=== PATIENT | male | born 1950 | race American Indian/Alaskan Native ===

== ENCOUNTER 2019-03-18 07:02 | Inpatient (IN) | payer MEDICAID, OTHER ==
[2019-03-18 07:53] LABS: Basophils # (Auto) 0.1 K/mm3 (0.0-0.1); Basophils % (Auto) 1.4 % (0.0-1.8); Eosinophils # (Auto) 0.3 K/mm3 (0.0-0.4); Eosinophils % (Auto) 5.4 % (0.0-4.3); Hematocrit 31.9 % (35.5-45.6); Hemoglobin 10.6 gm/dl (11.8-15.2); Lymphocytes # (Auto) 1.4 K/mm3 (1.2-5.4); Lymphocytes % (Auto) 21.8 % (13.4-35.0); Mean Corpuscular HGB Conc 33 % (32-34); Mean Corpuscular Volume 85 fl (84-94); Monocytes % (Auto) 15.9 % (0.0-7.3); Platelet Count 190 K/mm3 (140-440); Red Blood Count 3.77 M/mm3 (3.65-5.03); Red Cell Distribution Width 16.3 % (13.2-15.2)
[2019-03-18 08:08] LABS: Calcium 9.3 mg/dL (8.4-10.2)
[2019-03-18] MEDS ORDERED: D50W (25GM) Vial IV ONE (08:31)
[2019-03-18] MEDS ORDERED: PROVENTIL IH ONE (08:31)
[2019-03-18] MEDS ORDERED: HumuLIN R IV ONE (08:32)
[2019-03-18] MEDS ORDERED: CALCIUM GLUCONATE 1,000 MG in NACL 0.9% 100 ML IV ONE (08:32)
[2019-03-18] MEDS ORDERED: LASIX IV ONE (08:46)
[2019-03-18] MEDS ORDERED: D50W (25GM) Syringe IV ONE (09:00)
--- NOTE | 2019-03-18 09:00 | Emergency Department Report ---
ED General Adult HPI - General Chief complaint: Medical Clearance Stated complaint: DIALYSIS Time Seen by Provider: 03/18/19 08:30 Source: patient, family Mode of arrival: Wheelchair Limitations: No Limitations - History of Present Illness Initial comments: 68-year-old male with a past medical history of hypertension and diabetes and recent onset of end-stage renal disease requiring dialysis presents to the hospital requesting dialysis. Patient was just discharged from [facility] 3 days ago this past Monday after an admission for acute renal failure. Patient had a right sided chest wall catheter placed and had approximately 5 episodes of dialysis prior to discharge. Last dialysis was 3 days ago. Patient is not a [place] citizen and therefore is having difficulty finding a dialysis center and was told by [facility] to go to the closest ER near his house on Monday for dialysis. Patient presents asymptomatic and denies shortness of breath, leg edema, or chest pain. He does still make urine 1-2 times per day. - Related Data Home Medications Medication Instructions Recorded Confirmed Last Taken Acetaminophen 1,000 mg PO TID PRN 03/18/19 03/18/19 Unknown Aspirin [Aspirin BABY CHEW TAB] 81 mg PO QDAY 03/18/19 03/18/19 Unknown AtorvaSTATin [Lipitor] 2 tab PO QHS 03/18/19 03/18/19 Unknown Calcitriol [Rocaltrol] 0.25 mcg PO QDAY 03/18/19 03/18/19 Unknown Carvedilol [Coreg] 25 mg PO BID 03/18/19 03/18/19 Unknown Docusate Sodium [Colace] 100 mg PO BID PRN 03/18/19 03/18/19 Unknown Folic Acid [Folvite] 1 tab PO QDAY 03/18/19 03/18/19 Unknown ISOSORBIDE MONOnitrate [Imdur ER] 30 mg PO DAILY 03/18/19 03/18/19 Unknown Insulin Detemir [Levemir Flextouch] 6 unit SQ QHS 03/18/19 03/18/19 Unknown Lispro Insulin [HumaLOG] 2 unit SQ TID 03/18/19 03/18/19 Unknown Losartan [Cozaar] 100 mg PO QDAY 03/18/19 03/18/19 Unknown NIFEdipine [Adalat cc] 60 mg PO QDAY 03/18/19 03/18/19 Unknown Sevelamer Carbonate [Renvela] 800 mg PO TIDWM 03/18/19 03/18/19 Unknown Torsemide [Demadex] 100 mg PO QDAY 03/18/19 03/18/19 Unknown hydrALAZINE [Apresoline] 2 tab PO Q8HR 03/18/19 03/18/19 Unknown Allergies Allergy/AdvReac Type Severity Reaction Status Date / Time No Known Allergies Allergy Unverified 03/18/19 07:26 ED Review of Systems ROS: Stated complaint: DIALYSIS Other details as noted in HPI Comment: All other systems reviewed and negative ED Past Medical Hx - Past Medical History Previous Medical History?: Yes Hx Hypertension: Yes Hx Diabetes: Yes Hx Renal Disease: Yes (Dialysis M, W, F) - Surgical History Past Surgical History?: Yes Additional Surgical History: Dialysis graft placement to left lower arm. - Social History Smoking Status: Never Smoker Substance Use Type: None - Medications Home Medications: Home Medications Medication Instructions Recorded Confirmed Last Taken Type Acetaminophen 1,000 mg PO TID PRN 03/18/19 03/18/19 Unknown History Aspirin [Aspirin BABY CHEW TAB] 81 mg PO QDAY 03/18/19 03/18/19 Unknown History AtorvaSTATin [Lipitor] 2 tab PO QHS 03/18/19 03/18/19 Unknown History Calcitriol [Rocaltrol] 0.25 mcg PO QDAY 03/18/19 03/18/19 Unknown History Carvedilol [Coreg] 25 mg PO BID 03/18/19 03/18/19 Unknown History Docusate Sodium [Colace] 100 mg PO BID PRN 03/18/19 03/18/19 Unknown History Folic Acid [Folvite] 1 tab PO QDAY 03/18/19 03/18/19 Unknown History ISOSORBIDE MONOnitrate [Imdur ER] 30 mg PO DAILY 03/18/19 03/18/19 Unknown History Insulin Detemir [Levemir Flextouch] 6 unit SQ QHS 03/18/19 03/18/19 Unknown History Lispro Insulin [HumaLOG] 2 unit SQ TID 03/18/19 03/18/19 Unknown History Losartan [Cozaar] 100 mg PO QDAY 03/18/19 03/18/19 Unknown History NIFEdipine [Adalat cc] 60 mg PO QDAY 03/18/19 03/18/19 Unknown History Sevelamer Carbonate [Renvela] 800 mg PO TIDWM 03/18/19 03/18/19 Unknown History Torsemide [Demadex] 100 mg PO QDAY 03/18/19 03/18/19 Unknown History hydrALAZINE [Apresoline] 2 tab PO Q8HR 03/18/19 03/18/19 Unknown History ED Physical Exam - General Limitations: No Limitations - Other Other exam information: General: No limitations, patient is alert in no acute distress Head exam: Atraumatic, normocephalic Eyes exam: Normal appearance ENT: Moist mucous membrane Neck exam: Normal inspection, full range of motion, no meningismus nontender Respiratory exam: Clear to auscultation bilateral, no wheezes, rales, crackles Cardiovascular: Normal rate and rhythm Abdomen: Soft, nondistended, and nontender, with normal bowel sounds, no rebound, or guarding Extremity: Full range of motion normal inspection no deformity, no leg edema Back: Normal Inspection, full range of motion, no tenderness Neurologic: Alert, oriented x3, cranial nerves intact, no motor or sensory deficit Psychiatric: normal affect, normal mood Skin: Warm, dry, intact ED Course Vital Signs 03/18/19 03/18/19 03/18/19 07:29 08:15 08:30 Temperature 97.1 F L Pulse Rate 67 65 66 Pulse Rate [ Bilateral] Pulse Rate [ Throughout] Respiratory 18 13 13 Rate Respiratory Rate [Bilateral ] Respiratory Rate [ Throughout] Blood Pressure 132/56 141/69 151/68 O2 Sat by Pulse 99 100 100 Oximetry 03/18/19 03/18/19 03/18/19 08:57 09:01 09:30 Temperature Pulse Rate 67 66 Pulse Rate [ 68 Bilateral] Pulse Rate [ 68 Throughout] Respiratory 15 12 Rate Respiratory 16 Rate [Bilateral ] Respiratory 16 Rate [ Throughout] Blood Pressure 157/74 158/71 O2 Sat by Pulse 100 100 Oximetry 03/18/19 03/18/19 03/18/19 10:00 10:31 11:00 Temperature Pulse Rate 75 75 75 Pulse Rate [ Bilateral] Pulse Rate [ Throughout] Respiratory 16 16 17 Rate Respiratory Rate [Bilateral ] Respiratory Rate [ Throughout] Blood Pressure 150/69 174/80 168/78 O2 Sat by Pulse 100 100 98 Oximetry - Consultations Consultation #1: 03/18/19 08:59 case d/w forest fire prevention specialist Machinist Dr Rogers who will arrange for inpt dialysis ED Medical Decision Making - Lab Data Result diagrams: 03/18/19 07:36 03/18/19 07:36 Lab Results 03/18/19 03/18/19 Range/Units 07:36 07:36 WBC 6.4 (4.5-11.0) K/mm3 RBC 3.77 (3.65-5.03) M/mm3 Hgb 10.6 L (11.8-15.2) gm/dl Hct 31.9 L (35.5-45.6) % MCV 85 (84-94) fl MCH 28 (28-32) pg MCHC 33 (32-34) % RDW 16.3 H (13.2-15.2) % Plt Count 190 (140-440) K/mm3 Lymph % (Auto) 21.8 (13.4-35.0) % [place] % (Auto) 15.9 H (0.0-7.3) % Eos % (Auto) 5.4 H (0.0-4.3) % Baso % (Auto) 1.4 (0.0-1.8) % Lymph # 1.4 (1.2-5.4) K/mm3 [place] # 1.0 H (0.0-0.8) K/mm3 Eos # 0.3 (0.0-0.4) K/mm3 Baso # 0.1 (0.0-0.1) K/mm3 Seg Neutrophils % 55.5 (40.0-70.0) % Seg Neutrophils # 3.5 (1.8-7.7) K/mm3 Sodium 134 L (137-145) mmol/L Potassium 5.9 H (3.6-5.0) mmol/L Chloride 94.1 L (98-107) mmol/L Carbon Dioxide 24 (22-30) mmol/L Anion Gap 22 mmol/L BUN 54 H (9-20) mg/dL Creatinine 10.5 H (0.8-1.5) mg/dL Estimated GFR 5 ml/min BUN/Creatinine Ratio 5 % Glucose 125 H (75-100) mg/dL Calcium 9.3 (8.4-10.2) mg/dL - EKG Data -: EKG Interpreted by [facility] EKG shows normal: sinus rhythm, axis (qrs 3), QRS complexes (qrsd 80), ST-T waves (peak t wave) Rate: normal (69) - EKG Data When compared to previous EKG there are: previous EKG unavailable Critical Care Time: No Critical care attestation.: If time is entered above; I have spent that time in minutes in the direct care of this critically ill patient, excluding procedure time. ED Disposition Clinical Impression: ESRD needing dialysis, Hyperkalemia Disposition: OP ADMIT IP TO THIS HOSP Is pt being admited?: Yes Condition: Stable Time of Disposition: 09:00 (hospitalist)
[2019-03-18] MEDS ORDERED: NARCAN 0.4 MG/1 ML IV PRN (09:33)
[2019-03-18] MEDS ORDERED: ZOFRAN IV PRN (09:33)
[2019-03-18] MEDS ORDERED: SODIUM CHLORIDE FLUSH SYRINGE 10 ML IV PRN (09:33)
[2019-03-18] MEDS ORDERED: TYLENOL PO PRN (09:33)
--- NOTE | 2019-03-18 09:33 | History and Physical Report ---
History of Present Illness Date of examination: 03/18/19 Date of admission: 03/18/19 Chief complaint: Need for Dialysis History of present illness: Patient is a 68-year-old male with history of diabetes mellitus and hypertension and presumed volume overload and most recent past in addition to CK D which recently progressed to end-stage renal disease in the last month. He presents to the ED today requesting dialysis. According to the patient's was recently discharged from [facility] this past Monday following admission that lasted a span of 2 weeks. He has been going to dialysis for the past month at [facility] and due to volume overload required inpatient stay and on discharge was advised to follow up at the nearest hospital to his home for dialysis. The patient reports that he has been in his normal usual state he denies any shortness of breath, nausea vomiting or diarrhea. He denies any chest pain orthopnea PND. He denies any bilateral lower extremity edema. He reports positive urine output once 2 times per day. He could not quantify this. Although he is a [employer] card [employer] is not a [place] citizen and although he has a job has been having a difficult time finding dialysis and but due to no insurance. In the ER is noted to have some mild T-wave changes on his EKG and also hyperkalemia with potassium of over 5. And was recommended to admit the patient for further workup ROS: Except as noted in HPI all 14 point system has been reviewed with the patient and otherwise negative Past History Past Medical History: diabetes, hypertension, hyperlipidemia Past Surgical History: Other (left wrist,AV graft placement) Social history: no significant social history, , lives with family, full code Family history: no significant family history Medications and Allergies Allergies Allergy/AdvReac Type Severity Reaction Status Date / Time No Known Allergies Allergy Unverified 03/18/19 07:26 Home Medications Medication Instructions Recorded Confirmed Last Taken Type Acetaminophen 1,000 mg PO TID PRN 03/18/19 03/18/19 Unknown History Aspirin [Aspirin BABY CHEW TAB] 81 mg PO QDAY 03/18/19 03/18/19 Unknown History AtorvaSTATin [Lipitor] 2 tab PO QHS 03/18/19 03/18/19 Unknown History Calcitriol [Rocaltrol] 0.25 mcg PO QDAY 03/18/19 03/18/19 Unknown History Carvedilol [Coreg] 25 mg PO BID 03/18/19 03/18/19 Unknown History Docusate Sodium [Colace] 100 mg PO BID PRN 03/18/19 03/18/19 Unknown History Folic Acid [Folvite] 1 tab PO QDAY 03/18/19 03/18/19 Unknown History ISOSORBIDE MONOnitrate [Imdur ER] 30 mg PO DAILY 03/18/19 03/18/19 Unknown History Insulin Detemir [Levemir Flextouch] 6 unit SQ QHS 03/18/19 03/18/19 Unknown History Lispro Insulin [HumaLOG] 2 unit SQ TID 03/18/19 03/18/19 Unknown History Losartan [Cozaar] 100 mg PO QDAY 03/18/19 03/18/19 Unknown History NIFEdipine [Adalat cc] 60 mg PO QDAY 03/18/19 03/18/19 Unknown History Sevelamer Carbonate [Renvela] 800 mg PO TIDWM 03/18/19 03/18/19 Unknown History Torsemide [Demadex] 100 mg PO QDAY 03/18/19 03/18/19 Unknown History hydrALAZINE [Apresoline] 2 tab PO Q8HR 03/18/19 03/18/19 Unknown History Exam - Constitutional Vitals: Temp Pulse Resp BP Pulse Ox 97.1 F L 67 15 157/74 100 03/18/19 07:29 03/18/19 09:01 03/18/19 09:01 03/18/19 09:01 03/18/19 09:01 General appearance: Present: mild distress, well-nourished - EENT Eyes: Present: PERRL, EOM intact ENT: hearing intact, clear oral mucosa, dentition normal - Neck Neck: Present: supple, normal ROM - Respiratory Respiratory effort: normal Respiratory: bilateral: CTA - Cardiovascular Rhythm: regular Heart Sounds: Present: S1 & S2. Absent: systolic murmur, diastolic murmur - Extremities Extremities: no ischemia, pulses intact, pulses symmetrical, No edema, normal temperature, normal color, Full ROM Peripheral Pulses: within normal limits - Abdominal General gastrointestinal: Present: soft, non-tender, non-distended, normal bowel sounds - Integumentary Integumentary: Present: clear, warm, dry (left wrist palpable thrill) - Musculoskeletal Musculoskeletal: strength equal bilaterally - Psychiatric Psychiatric: appropriate mood/affect, intact judgment & insight - Neurologic Neurologic: CNII-XII intact, moves all extremities Results - Labs CBC & Chem 7: 03/18/19 07:36 03/18/19 07:36 Labs: Laboratory Last Values WBC 6.4 K/mm3 (4.5-11.0) 03/18/19 07:36 RBC 3.77 M/mm3 (3.65-5.03) 03/18/19 07:36 Hgb 10.6 gm/dl (11.8-15.2) L 03/18/19 07:36 Hct 31.9 % (35.5-45.6) L 03/18/19 07:36 MCV 85 fl (84-94) 03/18/19 07:36 MCH 28 pg (28-32) 03/18/19 07:36 MCHC 33 % (32-34) 03/18/19 07:36 RDW 16.3 % (13.2-15.2) H 03/18/19 07:36 Plt Count 190 K/mm3 (140-440) 03/18/19 07:36 Lymph % (Auto) 21.8 % (13.4-35.0) 03/18/19 07:36 [place] % (Auto) 15.9 % (0.0-7.3) H 03/18/19 07:36 Eos % (Auto) 5.4 % (0.0-4.3) H 03/18/19 07:36 Baso % (Auto) 1.4 % (0.0-1.8) 03/18/19 07:36 Lymph # 1.4 K/mm3 (1.2-5.4) 03/18/19 07:36 [place] # 1.0 K/mm3 (0.0-0.8) H 03/18/19 07:36 Eos # 0.3 K/mm3 (0.0-0.4) 03/18/19 07:36 Baso # 0.1 K/mm3 (0.0-0.1) 03/18/19 07:36 Seg Neutrophils % 55.5 % (40.0-70.0) 03/18/19 07:36 Seg Neutrophils # 3.5 K/mm3 (1.8-7.7) 03/18/19 07:36 Sodium 134 mmol/L (137-145) L 03/18/19 07:36 Potassium 5.9 mmol/L (3.6-5.0) H 03/18/19 07:36 Chloride 94.1 mmol/L (98-107) L 03/18/19 07:36 Carbon Dioxide 24 mmol/L (22-30) 03/18/19 07:36 22 mmol/L 03/18/19 07:36 BUN 54 mg/dL (9-20) H 03/18/19 07:36 10.5 mg/dL (0.8-1.5) H 03/18/19 07:36 Estimated GFR 5 ml/min 03/18/19 07:36 5 % 03/18/19 07:36 Glucose 125 mg/dL (75-100) H 03/18/19 07:36 Calcium 9.3 mg/dL (8.4-10.2) 03/18/19 07:36 Assessment and Plan Assessment and plan: Patient is a 68-year-old male with history of diabetes mellitus and hypertension and presumed volume overload and most recent past in addition to CK D which recently progressed to end-stage renal disease in the last month. He presents to the ED today requesting dialysis. According to the patient's was recently discharged from [facility] this past Monday following admission that lasted a span of 2 weeks. He has been going to dialysis for the past month at [facility] and due to volume overload required inpatient stay and on discharge was advised to follow up at the nearest hospital to his home for dialysis. The patient reports that he has been in his normal usual state he denies any shortness of breath, nausea vomiting or diarrhea. He denies any chest pain orthopnea PND. He denies any bilateral lower extremity edema. He reports positive urine output once 2 times per day. He could not quantify this. 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 In the ER is noted to have some mild T-wave changes on his EKG and also hyperkalemia with potassium of over 5. And was recommended to admit the patient for further workup ESRD ON HD HYPERKALMIA Metabolic Acidosis Anemia of chronic disease secondary to End-stage renal disease. DM with Hyperglycemia Hyponatremia Hyperlipidemia Plan Admit to Medicine Nephrology consulted, start on HD Repeat Labs in AM to enure correction of Hyperkalemia Resume appropriate home Glucose control, Accu check ACHS DVT/GI Prophy Plan of care discussed with patient and family Case management consulted to assist with outpatient HD placement Advance Directives: Yes Plan of care discussed with patient/family: Yes
--- NOTE | 2019-03-18 10:31 | Consultation ---
History of Present Illness - Reason for Consult Consult date: 03/18/19 end stage renal disease, hyperkalemia - History of Present Illness The patient is a 68 Yo male with history significant for DM type 2, Hypertension, HLD and CKD progressed to ESRD who presented to [facility] ED today for hemodialysis. Per patient he was admitted at [facility] between and 03/15 for what seems to be uremic sympotms and volume overload. He was dialyzed 5 times over a period of 8 days. There were unable to secure a outpatient hemodialysis chair for him due to lack of Insurance and was di scharged with advise to follow up at the nearest hospital to dialysis. The patient reports that he has been in his usual state and denies any shortness of breath, nausea, vomiting, cp, leg swelling, dizziness or confusion. He denies any chest pain orthopnea PND. He denies any bilateral lower extremity edema. In the ER he is noted to have potassium of over 5.9. Past History Past Medical History: diabetes, dialysis, ESRD, hypertension, hyperlipidemia Medications and Allergies Allergies Allergy/AdvReac Type Severity Reaction Status Date / Time No Known Allergies Allergy Unverified 03/18/19 07:26 Home Medications Medication Instructions Recorded Confirmed Last Taken Type Acetaminophen 1,000 mg PO TID PRN 03/18/19 03/18/19 Unknown History Aspirin [Aspirin BABY CHEW TAB] 81 mg PO QDAY 03/18/19 03/18/19 Unknown History AtorvaSTATin [Lipitor] 2 tab PO QHS 03/18/19 03/18/19 Unknown History Calcitriol [Rocaltrol] 0.25 mcg PO QDAY 03/18/19 03/18/19 Unknown History Carvedilol [Coreg] 25 mg PO BID 03/18/19 03/18/19 Unknown History Docusate Sodium [Colace] 100 mg PO BID PRN 03/18/19 03/18/19 Unknown History Folic Acid [Folvite] 1 tab PO QDAY 03/18/19 03/18/19 Unknown History ISOSORBIDE MONOnitrate [Imdur ER] 30 mg PO DAILY 03/18/19 03/18/19 Unknown History Insulin Detemir [Levemir Flextouch] 6 unit SQ QHS 03/18/19 03/18/19 Unknown History Lispro Insulin [HumaLOG] 2 unit SQ TID 03/18/19 03/18/19 Unknown History Losartan [Cozaar] 100 mg PO QDAY 03/18/19 03/18/19 Unknown History NIFEdipine [Adalat cc] 60 mg PO QDAY 03/18/19 03/18/19 Unknown History Sevelamer Carbonate [Renvela] 800 mg PO TIDWM 03/18/19 03/18/19 Unknown History Torsemide [Demadex] 100 mg PO QDAY 03/18/19 03/18/19 Unknown History hydrALAZINE [Apresoline] 2 tab PO Q8HR 03/18/19 03/18/19 Unknown History Active Meds: Active Medications Acetaminophen (Tylenol) 650 mg PO Q4H PRN PRN Reason: Pain MILD(1-3)/Fever >100.5/HUSSEIN Albuterol/Ipratropium (Duoneb *Not For Prn Use*) 1 ampul IH Q6HRT MARRY Famotidine (Pepcid) 10 mg PO BID MARRY Naloxone HCl (Narcan 0.4 Mg/1 Ml) 0.1 mg IV Q2MIN PRN PRN Reason: Res Rate </= 8 or 02 SAT < 92% Ondansetron HCl (Zofran) 4 mg IV Q4H PRN PRN Reason: Nausea And Vomiting Sodium Chloride (Sodium Chloride Flush Syringe 10 Ml) 10 ml IV BID MARRY Sodium Chloride (Sodium Chloride Flush Syringe 10 Ml) 10 ml IV PRN PRN PRN Reason: LINE FLUSH Review of Systems Constitutional: no weight loss, no weight gain, no fever, no chills, no anorexia, no poor appetite Cardiovascular: high blood pressure, no chest pain, no orthopnea, no palpit ations, no edema, no syncope, no lightheadedness, no shortness of breath, no leg edema Respiratory: no cough, no hemoptysis, no shortness of breath, no dyspnea on exertion Gastrointestinal: no abdominal pain, no nausea, no vomiting, no diarrhea, no m nella, no jaundice Genitourinary Male: no dysuria, no hematuria Integumentary: no rash, no jaundice Neurological: no syncope, no convulsions, no aphasia, no change in speech, no change in mentation, no confusion, no memory loss Exam - Vital Signs Vital signs: Vital Signs Temp Pulse Resp BP Pulse Ox 97.1 F L 67 18 132/56 99 03/18/19 07:29 03/18/19 07:29 03/18/19 07:29 03/18/19 07:29 03/18/19 07:29 - General Appearance General appearance: well-developed, well-nourished, appears stated age, other (R IJ tunnel catheter) EENT: ATNC, PERRL, mucous membranes moist, hearing intact, vision intact Neck: Present: neck supple, trachea midline Respiratory: Clear to Ascultation Heart: regular, S1S2, no murmurs Gastrointestinal: Present: normoactive bowel sounds. Absent: tenderness, distended Integumentary: no rash, warm and dry Neurologic: no focal deficit, no asterixis, alert and oriented x3 Musculoskeletal: Present: other (no edema) Psychiatric: cooperative Results - Lab Results 03/18/19 07:36 03/18/19 07:36 Most recent lab results Calcium 9.3 mg/dL (8.4-10.2) 03/18/19 07:36 Assessment and Plan 1. ESRD: Recently started on hemodialysis. Last dialyzed 3 days ago. Plan for HD today. 2. Hyperkalemia: HD today. 3. Anemia: Monitor and Epogen with HD as needed. 4. DM type 2. 5. HTN: Monitor BP. UF with HD today. cloud services architect.
[2019-03-18] MEDS ORDERED: NACL 0.9% 100 ML IV PRN (10:57)
[2019-03-18] MEDS ORDERED: HEPARIN 10,000 UNITS/10 ML IV PRN ×2 (10:57)
[2019-03-18] MEDS: SODIUM CHLORIDE FLUSH SYRINGE 10 ML IV SCH ×2 (12:16→21:26)
[2019-03-18] MEDS: PEPCID PO SCH (12:16)
[2019-03-18 13:47] LABS: Hepatitis B Surface Antigen Non-Reactive (Negative); Hepatitis C Virus Antibody Non-Reactive (NonReactive)
[2019-03-18] MEDS ORDERED: COLACE PO PRN (14:09)
[2019-03-18] MEDS: DUONEB *Not for PRN Use IH SCH ×2 (15:39→20:22)
[2019-03-18] MEDS: RENVELA PO SCH (18:28)
[2019-03-18] MEDS: APRESOLINE PO SCH (21:25)
[2019-03-18] MEDS: LANTUS SUB-Q SCH (21:26)
[2019-03-18] MEDS: COREG PO SCH (21:26)
[2019-03-18] MEDS ORDERED: INSULIN DETEMIR 6 UNIT SQ SCH (22:00)
[2019-03-18] MEDS ORDERED: PROVENTIL IH PRN (22:26)
[2019-03-19 04:36] LABS: Hematocrit 33.5 % (35.5-45.6); Hemoglobin 11.1 gm/dl (11.8-15.2); Mean Corpuscular HGB Conc 33 % (32-34); Mean Corpuscular Volume 86 fl (84-94); Platelet Count 187 K/mm3 (140-440); Red Blood Count 3.92 M/mm3 (3.65-5.03); Red Cell Distribution Width 17.6 % (13.2-15.2)
[2019-03-19 05:43] LABS: Band Neutrophils # (Manual) 0.1 K/mm3; Promyelocytes # (Manual) 0.1 K/mm3; Total Cells Counted 100
[2019-03-19 05:45] LABS: Hypochromasia 2+; Platelet Estimate Consistent w Auto
[2019-03-19] MEDS: APRESOLINE PO SCH ×3 (06:46→22:27)
[2019-03-19] MEDS: RENVELA PO SCH ×3 (07:52→17:34)
[2019-03-19] MEDS: COREG PO SCH ×2 (09:15→22:27)
[2019-03-19] MEDS: PROCARDIA XL PO SCH (09:16)
[2019-03-19] MEDS: FOLVITE PO SCH (09:16)
[2019-03-19] MEDS: IMDUR PO SCH (09:17)
[2019-03-19] MEDS: DEMADEX PO SCH (09:17)
[2019-03-19] MEDS: BABY ASPIRIN PO SCH (09:17)
[2019-03-19] MEDS: ROCALTROL PO SCH (09:18)
[2019-03-19] MEDS: COZAAR PO SCH (09:18)
[2019-03-19] MEDS: SODIUM CHLORIDE FLUSH SYRINGE 10 ML IV SCH ×2 (09:19→22:31)
[2019-03-19] MEDS: PEPCID PO SCH (09:19)
[2019-03-19] MEDS ORDERED: NON-FORMULARY (Nifedipine [Adalat Cc] 60 MG) PO SCH (10:00)
[2019-03-19] MEDS ORDERED: NON-FORMULARY (Losartan [Cozaar] 100 MG) PO SCH (10:00)
--- NOTE | 2019-03-19 11:23 | Progress Note ---
Assessment and Plan 1. ESRD: Recently started on hemodialysis. Last dialyzed yesterday. Plan for HD tomorrow. 2. Hyperkalemia: Kayexalate and Lasix ordered. 3. Anemia: Monitor and Epogen with HD as needed. 4. DM type 2. 5. HTN: Monitor BP. 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 Subjective Date of service: 03/19/19 Interval history: Patient was seen and examined at the bedside. Doing ok. Objective - Vital Signs Vital signs: Vital Signs - 12hr 03/19/19 03/19/19 03/19/19 02:20 06:46 07:29 Temperature 98.3 F 98.3 F Pulse Rate 69 69 68 Respiratory 16 20 Rate Blood Pressure 168/74 168/74 150/76 O2 Sat by Pulse 98 100 Oximetry 03/19/19 03/19/19 03/19/19 07:41 09:15 09:17 Temperature Pulse Rate 74 74 Respiratory Rate Blood Pressure 158/70 158/70 O2 Sat by Pulse 99 Oximetry - General Appearance General appearance: well-developed, well-nourished, appears stated age, other (no distress, R IJ tunnel catheter) EENT: ATNC, PERRL, mucous membranes moist, hearing intact, vision intact Neck: supple Respiratory: Present: Clear to Ascultation Cardiology: regular, S1S2, no murmurs Gastrointestinal: normal, no tenderness, no distended Integumentary: no rash, warm and dry Neurologic: no focal deficit, no asterixis, alert and oriented x3 Musculoskeletal: other (no edema) Psychiatric: cooperative - Lab 03/19/19 03:52 03/19/19 03:52 Most recent lab results Calcium 9.0 mg/dL (8.4-10.2) 03/19/19 03:52 Medications & Allergies - Medications Allergies/Adverse Reactions: Allergies No Known Allergies Allergy (Unverified 03/18/19 07:26) Home Medications: Home Medications Medication Instructions Recorded Confirmed Last Taken Type Acetaminophen 1,000 mg PO TID PRN 03/18/19 03/18/19 Unknown History Aspirin [Aspirin BABY CHEW TAB] 81 mg PO QDAY 03/18/19 03/18/19 Unknown History AtorvaSTATin [Lipitor] 2 tab PO QHS 03/18/19 03/18/19 Unknown History Calcitriol [Rocaltrol] 0.25 mcg PO QDAY 03/18/19 03/18/19 Unknown History Carvedilol [Coreg] 25 mg PO BID 03/18/19 03/18/19 Unknown History Docusate Sodium [Colace] 100 mg PO BID PRN 03/18/19 03/18/19 Unknown History Folic Acid [Folvite] 1 tab PO QDAY 03/18/19 03/18/19 Unknown History ISOSORBIDE MONOnitrate [Imdur ER] 30 mg PO DAILY 03/18/19 03/18/19 Unknown History Insulin Detemir [Levemir Flextouch] 6 unit SQ QHS 03/18/19 03/18/19 Unknown History Lispro Insulin [HumaLOG] 2 unit SQ TID 03/18/19 03/18/19 Unknown History Losartan [Cozaar] 100 mg PO QDAY 03/18/19 03/18/19 Unknown History NIFEdipine [Adalat cc] 60 mg PO QDAY 03/18/19 03/18/19 Unknown History Sevelamer Carbonate [Renvela] 800 mg PO TIDWM 03/18/19 03/18/19 Unknown History Torsemide [Demadex] 100 mg PO QDAY 03/18/19 03/18/19 Unknown History hydrALAZINE [Apresoline] 2 tab PO Q8HR 03/18/19 03/18/19 Unknown History Active Medications: Generic Name Dose Route Start Last Admin Trade Name Freq PRN Reason Stop Dose Admin Acetaminophen 650 mg 03/18/19 09:33 Tylenol PO Q4H PRN Pain MILD(1-3)/Fever >100.5/HUSSEIN Albuterol 2.5 mg 03/18/19 22:26 Proventil IH Q3HRT PRN Shortness Of Breath Aspirin 81 mg 03/19/19 10:00 03/19/19 09:17 Baby Aspirin PO 81 mg QDAY MARRY Administration Atorvastatin Calcium 20 mg 03/18/19 22:00 03/18/19 21:25 Lipitor PO 20 mg QHS MARRY Administration Calcitriol 0.25 mcg 03/19/19 10:00 03/19/19 09:18 Rocaltrol PO 0.25 mcg QDAY MARRY Administration Carvedilol 25 mg 03/18/19 22:00 03/19/19 09:15 Coreg PO 25 mg BID MARRY Administration Docusate Sodium 100 mg 03/18/19 14:09 Colace PO BID PRN Constipation Famotidine 10 mg 03/18/19 11:00 03/19/19 09:19 Pepcid PO 10 mg DAILY MARRY Administration Folic Acid 1 mg 03/19/19 10:00 03/19/19 09:16 Folvite PO 1 mg QDAY MARRY Administration Heparin Sodium (Porcine) 1,000 unit 03/18/19 10:57 Heparin 10,000 Units/10 Ml IV PATRICIO PRN hemodialysis Heparin Sodium (Porcine) 2,000 unit 03/18/19 10:57 Heparin 10,000 Units/10 Ml IV PATRICIO PRN hemodialysis Hydralazine HCl 25 mg 03/18/19 22:00 03/19/19 06:46 Apresoline PO 25 mg Q8HR MARRY Administration Sodium Chloride 100 mls @ 999 mls/hr 03/18/19 10:57 Nacl 0.9% IV PATRICIO PRN Hypotension Insulin Glargine 6 units 03/18/19 22:00 03/18/19 21:26 Lantus SUB-Q 6 units QHS MARRY Administration Isosorbide Mononitrate 30 mg 03/19/19 10:00 03/19/19 09:17 Imdur PO 30 mg DAILY MARRY Administration Losartan Potassium 100 mg 03/19/19 10:00 03/19/19 09:18 Cozaar PO 100 mg QDAY MARRY Administration Naloxone HCl 0.1 mg 03/18/19 09:33 Narcan 0.4 Mg/1 Ml IV Q2MIN PRN Res Rate </= 8 or 02 SAT < 92% Nifedipine 60 mg 03/19/19 10:00 03/19/19 09:16 Procardia Xl PO 60 mg QDAY MARRY Administration Ondansetron HCl 4 mg 03/18/19 09:33 Zofran IV Q4H PRN Nausea And Vomiting Sevelamer Carbonate 800 mg 03/18/19 17:00 03/19/19 07:52 Renvela PO 800 mg TIDWM MARRY Administration Sodium Chloride 10 ml 03/18/19 10:00 03/19/19 09:19 Sodium Chloride Flush Syringe 10 Ml IV 10 ml BID MARRY Administration Sodium Chloride 10 ml 03/18/19 09:33 Sodium Chloride Flush Syringe 10 Ml IV PRN PRN LINE FLUSH Torsemide 100 mg 03/19/19 10:00 03/19/19 09:17 Demadex PO 100 mg QDAY MARRY Administration
[2019-03-19] MEDS ORDERED: KIONEX ONE (11:50)
[2019-03-19] MEDS: KIONEX PO SCH ×2 (11:54→17:35)
[2019-03-19] MEDS ORDERED: LASIX PO SCH (12:00)
[2019-03-19] MEDS ORDERED: D50W (25GM) Syringe IV PRN (15:36)
--- NOTE | 2019-03-19 15:36 | Progress Note ---
Assessment and Plan Assessment and plan: Patient is a 68-year-old man with a history of diabetes mellitus type 2, hypertension and ESRD on HD who presented to [facility] ED for hemodialysis. According to the patient he usually receives Hemodialysis from [facility] but on last admissionl he was advised to follow up at the nearest hospital to his home for hemodialysis. 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 Our Financial department is investigating if he paid into the system, i.e. taxes to see if he can get benefits. In the ER is noted to have some mild T-wave changes on his EKG and also hyperkalemia with potassium of over 5. And was recommended to admit the patient for further workup ESRD ON HD HYPERKALMIA Metabolic Acidosis Anemia of chronic disease secondary to End-stage renal disease. DM with Hyperglycemia Hyponatremia Hyperlipidemia Plan Admit to Medicine Nephrology consulted, start on HD Repeat Labs in AM to enure correction of Hyperkalemia Resume appropriate home Glucose control, Accu check ACHS DVT/GI Prophy Plan of care discussed with patient and family Case management consulted to assist with outpatient HD placement once potassium level stablizes, will discharge home. History Interval history: Patient was seen and examined. Follow-up on current diagnosis of ESRD. No overnight events reported to me. Patient denies any chest pain, shortness breath, nausea/vomiting or severe headaches. Imaging, nursing note, chart, labs and old chart reviewed. Discussed with patient. Gen: WDWN, NAD, Awake, Alert, Orientated HEENT: NCAT, EOMI, PERRL, OP Clear Neck: supple, no adenopathy, no thyromegaly, no JVD CVS/Heart: RRR, normal S1S2, pulses present bilaterally Chest/Lungs: CTA B, Symmetrical chest expansion, good air entry bilaterally GI/Abdomen: soft, NTND, good bowel sounds, no guarding or rebound /Bladder: no suprapubic tenderness, no CVA or paraspinal tenderness Extermity/Skin: no c/c/e, no obvious rash MSK: FROM x 4 Neuro: CN 2-12 grossly intact, no new focal deficits Psych: calm Hospitalist Physical - Constitutional Vitals: Temp Pulse Resp BP Pulse Ox 98.3 F 69 20 161/84 99 03/19/19 07:29 03/19/19 12:59 03/19/19 07:29 03/19/19 12:59 03/19/19 07:41 General appearance: Present: mild distress, well-nourished Results - Labs CBC & Chem 7: 03/19/19 03:52 03/19/19 03:52 Labs: Laboratory Last Values WBC 5.3 K/mm3 (4.5-11.0) 03/19/19 03:52 RBC 3.92 M/mm3 (3.65-5.03) 03/19/19 03:52 Hgb 11.1 gm/dl (11.8-15.2) L 03/19/19 03:52 Hct 33.5 % (35.5-45.6) L 03/19/19 03:52 MCV 86 fl (84-94) 03/19/19 03:52 MCH 28 pg (28-32) 03/19/19 03:52 MCHC 33 % (32-34) 03/19/19 03:52 RDW 17.6 % (13.2-15.2) H 03/19/19 03:52 Plt Count 187 K/mm3 (140-440) 03/19/19 03:52 Lymph % (Auto) 21.8 % (13.4-35.0) 03/18/19 07:36 Wetzel % (Auto) Custom Seamstress 03/19/19 03:52 Eos % (Auto) 5.4 % (0.0-4.3) H 03/18/19 07:36 Baso % (Auto) 1.4 % (0.0-1.8) 03/18/19 07:36 Lymph # 1.4 K/mm3 (1.2-5.4) 03/18/19 07:36 Wetzel # 1.0 K/mm3 (0.0-0.8) H 03/18/19 07:36 Eos # 0.3 K/mm3 (0.0-0.4) 03/18/19 07:36 Baso # 0.1 K/mm3 (0.0-0.1) 03/18/19 07:36 Add Manual Diff Complete 03/19/19 03:52 Total Counted 100 03/19/19 03:52 Seg Neutrophils % Custom Seamstress 03/19/19 03:52 Seg Neuts % (Manual) 38.0 % (40.0-70.0) L 03/19/19 03:52 1.0 % 03/19/19 03:52 43.0 % (13.4-35.0) H 03/19/19 03:52 Reactive Lymphs % (Man) 0 % 03/19/19 03:52 12.0 % (0.0-7.3) H 03/19/19 03:52 4.0 % (0.0-4.3) 03/19/19 03:52 1.0 % (0.0-1.8) 03/19/19 03:52 0 % 03/19/19 03:52 0 % 03/19/19 03:52 1.0 % 03/19/19 03:52 0 % 03/19/19 03:52 Nucleated RBC % Not Reportable 03/19/19 03:52 Seg Neutrophils # 3.5 K/mm3 (1.8-7.7) 03/18/19 07:36 Seg Neutrophils # Man 2.0 K/mm3 (1.8-7.7) 03/19/19 03:52 Band Neutrophils # 0.1 K/mm3 03/19/19 03:52 2.3 K/mm3 (1.2-5.4) 03/19/19 03:52 Abs React Lymphs (Man) 0.0 K/mm3 03/19/19 03:52 0.6 K/mm3 (0.0-0.8) 03/19/19 03:52 0.2 K/mm3 (0.0-0.4) 03/19/19 03:52 0.1 K/mm3 (0.0-0.1) 03/19/19 03:52 0.0 K/mm3 03/19/19 03:52 0.0 K/mm3 03/19/19 03:52 0.1 K/mm3 03/19/19 03:52 Blast Cells # 0.0 K/mm3 03/19/19 03:52 WBC Morphology Not Reportable 03/19/19 03:52 WBC Morphology TNR 03/19/19 03:52 Hypersegmented Neuts Not Reportable 03/19/19 03:52 Hyposegmented Neuts Not Reportable 03/19/19 03:52 Hypogranular Neuts Not Reportable 03/19/19 03:52 Not Reportable 03/19/19 03:52 Not Reportable 03/19/19 03:52 Not Reportable 03/19/19 03:52 Not Reportable 03/19/19 03:52 Not Reportable 03/19/19 03:52 Not Reportable 03/19/19 03:52 Consistent w auto 03/19/19 03:52 Not Reportable 03/19/19 03:52 Plt Clumps, EDTA Not Reportable 03/19/19 03:52 Not Reportable 03/19/19 03:52 Not Reportable 03/19/19 03:52 Not Reportable 03/19/19 03:52 Plt Morphology Comment Not Reportable 03/19/19 03:52 RBC Morphology Not Reportable 03/19/19 03:52 Dimorphic RBCs Not Reportable 03/19/19 03:52 Not Reportable 03/19/19 03:52 2+ 03/19/19 03:52 Not Reportable 03/19/19 03:52 Not Reportable 03/19/19 03:52 Not Reportable 03/19/19 03:52 Not Reportable 03/19/19 03:52 Not Reportable 03/19/19 03:52 Not Reportable 03/19/19 03:52 Not Reportable 03/19/19 03:52 Not Reportable 03/19/19 03:52 Not Reportable 03/19/19 03:52 Not Reportable 03/19/19 03:52 Not Reportable 03/19/19 03:52 Not Reportable 03/19/19 03:52 Not Reportable 03/19/19 03:52 Not Reportable 03/19/19 03:52 Not Reportable 03/19/19 03:52 Not Reportable 03/19/19 03:52 Not Reportable 03/19/19 03:52 Acanthocytes (Spur) Not Reportable 03/19/19 03:52 Rouleaux Not Reportable 03/19/19 03:52 Not Reportable 03/19/19 03:52 Not Reportable 03/19/19 03:52 Not Reportable 03/19/19 03:52 Not Reportable 03/19/19 03:52 Hem Pathologist Commnt No 03/19/19 03:52 Sodium 138 mmol/L (137-145) 03/19/19 03:52 Potassium 5.5 mmol/L (3.6-5.0) H 03/19/19 03:52 Chloride 96.5 mmol/L (98-107) L 03/19/19 03:52 Carbon Dioxide 30 mmol/L (22-30) 03/19/19 03:52 17 mmol/L 03/19/19 03:52 BUN 28 mg/dL (9-20) H 03/19/19 03:52 6.3 mg/dL (0.8-1.5) H 03/19/19 03:52 Estimated GFR 11 ml/min 03/19/19 03:52 4 % 03/19/19 03:52 Glucose 100 mg/dL (75-100) 03/19/19 03:52 POC Glucose 247 (70-105) H 03/19/19 11:28 Calcium 9.0 mg/dL (8.4-10.2) 03/19/19 03:52 Hepatitis A IgM Ab Non-reactive (NonReactive) 03/18/19 10:12 Hep Bs Antigen Non-reactive (Negative) 03/18/19 10:12 Hep B Core IgM Ab Non-reactive (NonReactive) 03/18/19 10:12 Non-reactive (NonReactive) 03/18/19 10:12 Active Medications - Current Medications Current Medications: Generic Name Dose Route Start Last Admin Trade Name Freq PRN Reason Stop Dose Admin Acetaminophen 650 mg 03/18/19 09:33 Tylenol PO Q4H PRN Pain MILD(1-3)/Fever >100.5/HUSSEIN Albuterol 2.5 mg 03/18/19 22:26 Proventil IH Q3HRT PRN Shortness Of Breath Aspirin 81 mg 03/19/19 10:00 03/19/19 09:17 Baby Aspirin PO 81 mg QDAY MARRY Administration Atorvastatin Calcium 20 mg 03/18/19 22:00 03/18/19 21:25 Lipitor PO 20 mg QHS MARRY Administration Calcitriol 0.25 mcg 03/19/19 10:00 03/19/19 09:18 Rocaltrol PO 0.25 mcg QDAY MARRY Administration Carvedilol 25 mg 03/18/19 22:00 03/19/19 09:15 Coreg PO 25 mg BID MARRY Administration Docusate Sodium 100 mg 03/18/19 14:09 Colace PO BID PRN Constipation Famotidine 10 mg 03/18/19 11:00 03/19/19 09:19 Pepcid PO 10 mg DAILY MARRY Administration Folic Acid 1 mg 03/19/19 10:00 03/19/19 09:16 Folvite PO 1 mg QDAY MARRY Administration Furosemide 80 mg 03/19/19 12:00 03/19/19 11:51 Lasix PO 80 mg QDAY MARRY Administration Heparin Sodium (Porcine) 1,000 unit 03/18/19 10:57 Heparin 10,000 Units/10 Ml IV PATRICIO PRN hemodialysis Heparin Sodium (Porcine) 2,000 unit 03/18/19 10:57 Heparin 10,000 Units/10 Ml IV PATRICIO PRN hemodialysis Hydralazine HCl 25 mg 03/18/19 22:00 03/19/19 12:59 Apresoline PO 25 mg Q8HR MARRY Administration Sodium Chloride 100 mls @ 999 mls/hr 03/18/19 10:57 Nacl 0.9% IV PATRICIO PRN Hypotension Insulin Glargine 6 units 03/18/19 22:00 03/18/19 21:26 Lantus SUB-Q 6 units QHS MARRY Administration Isosorbide Mononitrate 30 mg 03/19/19 10:00 03/19/19 09:17 Imdur PO 30 mg DAILY MARRY Administration Losartan Potassium 100 mg 03/19/19 10:00 03/19/19 09:18 Cozaar PO 100 mg QDAY MARRY Administration Naloxone HCl 0.1 mg 03/18/19 09:33 Narcan 0.4 Mg/1 Ml IV Q2MIN PRN Res Rate </= 8 or 02 SAT < 92% Nifedipine 60 mg 03/19/19 10:00 03/19/19 09:16 Procardia Xl PO 60 mg QDAY MARRY Administration Ondansetron HCl 4 mg 03/18/19 09:33 Zofran IV Q4H PRN Nausea And Vomiting Sevelamer Carbonate 800 mg 03/18/19 17:00 03/19/19 11:48 Renvela PO 800 mg TIDWM MARRY Administration Sodium Chloride 10 ml 03/18/19 10:00 03/19/19 09:19 Sodium Chloride Flush Syringe 10 Ml IV 10 ml BID MARRY Administration Sodium Chloride 10 ml 03/18/19 09:33 Sodium Chloride Flush Syringe 10 Ml IV PRN PRN LINE FLUSH Sodium Polystyrene Sulfonate 30 gm 03/19/19 12:00 03/19/19 11:54 Kionex PO 03/19/19 18:01 30 gm Q6HR MARRY Administration Torsemide 100 mg 03/19/19 10:00 03/19/19 09:17 Demadex PO 100 mg QDAY MARRY Administration
[2019-03-19] MEDS: HumaLOG SUB-Q SCH ×3 (16:25→22:28)
[2019-03-19] MEDS: LANTUS SUB-Q SCH (22:27)
[2019-03-19] MEDS ORDERED: MIRALAX 3350 PO PRN (23:25)
[2019-03-20] MEDS: APRESOLINE PO SCH ×2 (05:20→14:17)
[2019-03-20 05:57] LABS: Calcium 9.6 mg/dL (8.4-10.2)
[2019-03-20] MEDS: HumaLOG SUB-Q SCH ×2 (07:33→14:16)
[2019-03-20] MEDS: RENVELA PO SCH ×2 (07:55→14:16)
--- NOTE | 2019-03-20 12:25 | Discharge Summary ---
Providers - Providers Date of Admission: 03/18/19 09:01 Date of discharge: 03/20/19 Attending physician: CARMELLA MUHAMMAD 03/18/19 08:59 Consult to Physician [CONS] Urgent Comment: Consulting Provider: ADÁN ARRIAZA Physician Instructions: Reason For Exam: esrd needing dialysis, hyperkalemia 03/18/19 09:27 Consult to Case Management [CONS] Routine Services Needed at Discharge: [employer] Hat Hydraulicker Notified:: PEYTON Riley Physician Instructions: patient will need dialysis placement 03/19/19 09:13 Physical Therapy Evaluation and Treat [CONS] Routine Comment: Reason For Exam: Weakness [facility] Condition: Stable Hospital course: Patient is a 68-year-old man with a history of diabetes mellitus type 2, hypertension and ESRD on HD who presented to [facility] ED for hemodialysis. According to the patient he usually receives Hemodialysis from [facility] but on last admissionl he was advised to follow up at the nearest hospital to his home for hemodialysis. Although he is a [employer] card yousif; he is not a [place] citizen and obtaining insurance has been difficult. Our Financial department is investigating if he paid into the system, i.e. taxes to see if he can get benefits. In the ER is noted to have some mild T-wave changes on his EKG and also hyperkalemia with potassium of over 5. And was recommended to admit the patient for further workup Discharge Diagnoses: ESRD ON HD HYPERKALMIA Metabolic Acidosis Anemia of chronic disease secondary to End-stage renal disease. DM with Hyperglycemia Hyponatremia Hyperlipidemia Disposition: TO HOME OR SELFCARE Time spent for discharge: 34 mintues Core Measure Documentation - Palliative Care Palliative Care/ Comfort Measures: Not Applicable - Core Measures Any of the following diagnoses?: none - VTE Discharge Requirements Deep Vein Thrombosis/Pulmonary Embolism Present on Admission: No Has pt received <5 days of overlap therapy or INR<2.0: No Anticoagulant overlap therapy prescribed at discharge: No Contraindication No Overlap Therapy order at DC: Not Indicated Exam - Physical Exam Narrative exam: Gen: WDWN, NAD, Awake, Alert, Orientated, bmi is wrong pt bmi is not 59.9 because he is not 163 kg, he maybe 163 lbs but not kg HEENT: NCAT, EOMI, PERRL, OP Clear Neck: supple, no adenopathy, no thyromegaly, no JVD CVS/Heart: RRR, normal S1S2, pulses present bilaterally Chest/Lungs: CTA B, Symmetrical chest expansion, good air entry bilaterally GI/Abdomen: soft, NTND, good bowel sounds, no guarding or rebound /Bladder: no suprapubic tenderness, no CVA or paraspinal tenderness Extermity/Skin: no c/c/e, no obvious rash MSK: FROM x 4 Neuro: CN 2-12 grossly intact, no new focal deficits Psych: calm - Constitutional Vitals: Temp Pulse Resp BP Pulse Ox 98.3 F 76 18 117/65 99 03/20/19 08:15 03/20/19 11:40 03/20/19 08:15 03/20/19 11:40 03/20/19 07:28 Plan Activity: other (no strenous activity unless cleared by PCP) Diet: renal Follow up with: MOUSTAPHA NARVAEZ MD [Primary Care Provider] - 3-5 Days ADÁN ARRIAZA MD [Staff Physician] - 7 Days
[2019-03-20] MEDS: FOLVITE PO SCH (14:10)
[2019-03-20] MEDS: DEMADEX PO SCH (14:11)
[2019-03-20] MEDS: COREG PO SCH (14:11)
[2019-03-20] MEDS: IMDUR PO SCH (14:11)
[2019-03-20] MEDS: BABY ASPIRIN PO SCH (14:11)
[2019-03-20] MEDS: PEPCID PO SCH (14:12)
[2019-03-20] MEDS: PROCARDIA XL PO SCH (14:12)
[2019-03-20] MEDS: SODIUM CHLORIDE FLUSH SYRINGE 10 ML IV SCH (14:12)
[2019-03-20] MEDS: ROCALTROL PO SCH (14:12)
[2019-03-20 14:13] VITALS: BP 134/77
[2019-03-20] MEDS: COZAAR PO SCH (14:15)
[2019-03-20] MEDS ORDERED: NACL 0.9 (PRIMING MACHINE ONLY DIALYSIS) MC ONE (16:48)
--- NOTE | 2019-03-20 16:59 | Progress Note ---
Assessment and Plan 1. ESRD: Recently started on hemodialysis. Last dialyzed 2 days ago. HD today. 2. Hyperkalemia: HD today. Low potassium diet. 3. Anemia: Monitor and Epogen with HD as needed. 4. DM type 2. 5. HTN: Monitor BP. Subjective Date of service: 03/20/19 Interval history: Patient was seen and examined at the bedside. Doing ok. Objective - Vital Signs Vital signs: Vital Signs - 12hr 03/20/19 03/20/19 03/20/19 05:20 07:28 08:15 Temperature 98.3 F 98.3 F Pulse Rate 67 75 72 Respiratory 18 18 Rate Blood Pressure 122/59 149/69 164/84 O2 Sat by Pulse 99 Oximetry 03/20/19 03/20/19 03/20/19 08:40 09:00 09:15 Temperature Pulse Rate 72 71 72 Respiratory Rate Blood Pressure 161/83 159/78 139/76 O2 Sat by Pulse Oximetry 03/20/19 03/20/19 03/20/19 09:30 09:45 10:00 Temperature Pulse Rate 72 72 72 Respiratory Rate Blood Pressure 148/84 143/78 140/79 O2 Sat by Pulse Oximetry 03/20/19 03/20/19 03/20/19 10:15 10:30 10:45 Temperature Pulse Rate 74 75 76 Respiratory Rate Blood Pressure 146/83 130/74 134/74 O2 Sat by Pulse Oximetry 03/20/19 03/20/19 03/20/19 11:00 11:15 11:18 Temperature Pulse Rate 79 78 73 Respiratory Rate Blood Pressure 123/70 107/64 116/60 O2 Sat by Pulse Oximetry 03/20/19 03/20/19 03/20/19 11:30 11:40 11:48 Temperature 98.3 F Pulse Rate 84 76 74 Respiratory 18 Rate Blood Pressure 148/80 117/65 149/79 O2 Sat by Pulse Oximetry 03/20/19 14:11 Temperature Pulse Rate 77 Respiratory Rate Blood Pressure 134/77 O2 Sat by Pulse Oximetry - General Appearance General appearance: well-developed, well-nourished, appears stated age, other (no distress, R IJ tunnel catheter) EENT: ATNC, PERRL, mucous membranes moist, hearing intact, vision intact Neck: supple Respiratory: Present: Clear to Ascultation Cardiology: regular, S1S2, no murmurs Gastrointestinal: normoactive bowel sounds Integumentary: no rash, warm and dry Neurologic: no focal deficit, no asterixis, alert and oriented x3 Musculoskeletal: other (no edema) - Lab 03/19/19 03:52 03/20/19 04:42 Most recent lab results Calcium 9.6 mg/dL (8.4-10.2) 03/20/19 04:42 Medications & Allergies - Medications Allergies/Adverse Reactions: Allergies No Known Allergies Allergy (Unverified 03/18/19 07:26) Home Medications: Home Medications Medication Instructions Recorded Confirmed Last Taken Type Aspirin [Aspirin BABY CHEW TAB] 81 mg PO QDAY #30 tab.chew 03/20/19 Unknown Rx AtorvaSTATin [Lipitor] 2 tab PO QHS #30 tablet 03/20/19 Unknown Rx Calcitriol [Rocaltrol] 0.25 mcg PO QDAY #30 capsule 03/20/19 Unknown Rx Carvedilol [Coreg] 25 mg PO BID #60 tab 03/20/19 03/18/19 Unknown Rx Docusate Sodium [Colace CAP] 100 mg PO BID PRN #30 capsule 03/20/19 Unknown Rx Folic Acid [Folvite] 1 tab PO QDAY #30 tablet 03/20/19 Unknown Rx ISOSORBIDE MONOnitrate [Imdur ER] 30 mg PO DAILY #30 tablet 03/20/19 Unknown Rx Insulin Detemir [Levemir Flextouch] 6 unit SQ QHS #1 insuln.pen 03/20/19 Unknown Rx Lispro Insulin [HumaLOG] 2 unit SQ TIDAC #1 vial 03/20/19 03/18/19 Unknown Rx Losartan [Cozaar] 100 mg PO QDAY #30 tablet 03/20/19 Unknown Rx NIFEdipine [Adalat cc] 60 mg PO QDAY #30 tablet.er 03/20/19 Unknown Rx Sevelamer Carbonate [Renvela] 800 mg PO TIDWM #90 tablet 03/20/19 Unknown Rx Torsemide [Demadex] 100 mg PO QDAY #30 tablet 03/20/19 Unknown Rx hydrALAZINE [Apresoline TAB] 2 tab PO TID #90 tablet 03/20/19 Unknown Rx
== END 2019-03-20 15:14 | disposition home or self-care (01) | DRG 640 ==
LOC: ED 07:02 → 2B-ACE 09:01
PROVIDERS: ADMIT Internal Medicine; ATTEND Internal Medicine
PROC: 5A1D70Z Performance of Urinary Filtration, Intermittent, Less than 6 Hours Per Day (ICD-10-PCS; principal; 2019-03-18)
PROC: 5A1D70Z Performance of Urinary Filtration, Intermittent, Less than 6 Hours Per Day (ICD-10-PCS; 2019-03-20)
DX: E87.5 Hyperkalemia (principal); N18.6 End stage renal disease; I12.0 Hypertensive chronic kidney disease with stage 5 chronic kidney disease or end stage renal disease; E87.2 Acidosis; E87.1 Hypo-osmolality and hyponatremia; D63.1 Anemia in chronic kidney disease; E11.65 Type 2 diabetes mellitus with hyperglycemia; E78.5 Hyperlipidemia, unspecified; E11.22 Type 2 diabetes mellitus with diabetic chronic kidney disease; Z95.828 Presence of other vascular implants and grafts; Z79.82 Long term (current) use of aspirin; Z79.899 Other long term (current) drug therapy; Z79.4 Long term (current) use of insulin; Z99.2 Dependence on renal dialysis
CPT/HCPCS: 36415; 80048; 80074; 82962; 85007; 85025; 87116; 93005; 93010; 94640; 94644; 96365; 96375; G0378; A9270-GY; J0610; J1815; J1940; J7030

== ENCOUNTER 2019-12-13 14:26 | Emergency (ER) | payer MEDICAID ==
--- NOTE | 2019-12-13 14:35 | Event Note ---
ED Screening Note ED Screening Note: Recently evaluated at [facility] 2 weeks ago. Hospital staff contacted his dialysis clinic for notification +TB test has cough, night sweats This initial assessment/diagnostic orders/clinical plan/treatment(s) is/are subject to change based on patients health status, clinical progression and re-assessment by fellow clinical providers in the ED. Further treatment and workup at subsequent clinical providers discretion. Patient/guardian urged not to elope from the ED as their condition may be serious if not clinically assessed and managed. Initial orders include: respiratory precautions, xr labs
--- NOTE | 2019-12-13 15:33 | XRay Report ---
CHEST 1 VIEW INDICATION: night sweats recent dx TB. COMPARISON: None FINDINGS: Support devices: None. Heart: Borderline to mild cardiomegaly. Lungs/Pleura: Trace right pleural effusion is identified. The lungs are clear otherwise. No pneumotho rax. No radiographic findings to suggest TB on portable chest x-ray. Additional findings: None. IMPRESSION: Borderline to mild cardiomegaly. Trace right pleural effusion. Signer Name: Niall Kohler Jr, MD Signed: 12/13/2019 3:29 PM Workstation Name: [id number]
[2019-12-13 16:11] LABS: Basophils # (Auto) 0.1 K/mm3 (0.0-0.1); Basophils % (Auto) 1.2 % (0.0-1.8); Eosinophils # (Auto) 0.3 K/mm3 (0.0-0.4); Eosinophils % (Auto) 5.3 % (0.0-4.3); Hemoglobin 9.6 gm/dl (11.8-15.2); Lymphocytes # (Auto) 1.5 K/mm3 (1.2-5.4); Lymphocytes % (Auto) 25.6 % (13.4-35.0); Mean Corpuscular HGB Conc 34 % (32-34); Mean Corpuscular Volume 86 fl (84-94); Monocytes # (Auto) 0.7 K/mm3 (0.0-0.8); Platelet Count 240 K/mm3 (140-440); Red Blood Count 3.25 M/mm3 (3.65-5.03); Red Cell Distribution Width 17.4 % (13.2-15.2)
[2019-12-13 16:21] LABS: INR 1.04 (0.87-1.13)
[2019-12-13 16:22] LABS: Partial Thromboplastin Time 30.3 Sec. (24.2-36.6)
[2019-12-13 16:36] LABS: Alanine Aminotransferase 41 units/L (7-56); Albumin 3.7 g/dL (3.9-5); BUN/Creatinine Ratio 6; Blood Urea Nitrogen 34 mg/dL (9-20); Calcium 9.1 mg/dL (8.4-10.2); Hemolysis Index 5
--- NOTE | 2019-12-13 16:41 | Emergency Department Report ---
ED General Adult HPI - General Chief complaint: Medical Clearance Stated complaint: POSS TB Time Seen by Provider: 12/13/19 15:07 Source: patient Mode of arrival: Ambulatory Limitations: No Limitations - History of Present Illness Initial comments: This is a 69-year-old end-stage renal dialysis patient who had routine hemodialysis yesterday. He is being considered for transplant. He had the results of his infectious disease screening received by his cleaner wall which showed a positive quantiferon-TB plus test. The patient denies night sweats. He has had no recent weight loss. He is not coughing. He has had no fever. I called the patient's cleaner wall Severity scale (0 -10): 0 - Related Data Previous Rx's Medication Instructions Recorded Last Taken Type Aspirin [Aspirin BABY CHEW TAB] 81 mg PO QDAY #30 tab.chew 03/20/19 Unknown Rx AtorvaSTATin [Lipitor] 2 tab PO QHS #30 tablet 03/20/19 Unknown Rx Docusate Sodium [Colace CAP] 100 mg PO BID PRN #30 capsule 03/20/19 Unknown Rx Folic Acid [Folvite] 1 tab PO QDAY #30 tablet 03/20/19 Unknown Rx ISOSORBIDE MONOnitrate [Imdur ER] 30 mg PO DAILY #30 tablet 03/20/19 Unknown Rx Insulin Detemir (Nf) [Levemir 6 unit SQ QHS #1 insuln.pen 03/20/19 Unknown Rx Flextouch (Nf)] Lispro Insulin [HumaLOG] 2 unit SQ TIDAC #1 vial 03/20/19 Unknown Rx Losartan [Cozaar] 100 mg PO QDAY #30 tablet 03/20/19 Unknown Rx NIFEdipine [Adalat cc] 60 mg PO QDAY #30 tablet.er 03/20/19 Unknown Rx Sevelamer Carbonate [Renvela] 800 mg PO TIDWM #90 tablet 03/20/19 Unknown Rx Torsemide [Demadex] 100 mg PO QDAY #30 tablet 03/20/19 Unknown Rx calcitrioL [Rocaltrol] 0.25 mcg PO QDAY #30 capsule 03/20/19 Unknown Rx carvediloL [Coreg] 25 mg PO BID #60 tab 03/20/19 Unknown Rx hydrALAZINE [Apresoline TAB] 2 tab PO TID #90 tablet 03/20/19 Unknown Rx Allergies Allergy/AdvReac Type Severity Reaction Status Date / Time No Known Allergies Allergy Unverified 03/18/19 07:26 ED Review of Systems ROS: Stated complaint: POSS TB Other details as noted in HPI ED Past Medical Hx - Past Medical History Previous Medical History?: Yes Hx Hypertension: Yes Hx Diabetes: Yes Hx Renal Disease: Yes - Surgical History Past Surgical History?: Yes Additional Surgical History: Dialysis graft placement to left lower arm. - Social History Smoking Status: Never Smoker Substance Use Type: None - Medications Home Medications: Home Medications Medication Instructions Recorded Confirmed Last Taken Type Aspirin [Aspirin BABY CHEW TAB] 81 mg PO QDAY #30 tab.chew 03/20/19 Unknown Rx AtorvaSTATin [Lipitor] 2 tab PO QHS #30 tablet 03/20/19 Unknown Rx Docusate Sodium [Colace CAP] 100 mg PO BID PRN #30 capsule 03/20/19 Unknown Rx Folic Acid [Folvite] 1 tab PO QDAY #30 tablet 03/20/19 Unknown Rx ISOSORBIDE MONOnitrate [Imdur ER] 30 mg PO DAILY #30 tablet 03/20/19 Unknown Rx Insulin Detemir (Nf) [Levemir 6 unit SQ QHS #1 insuln.pen 03/20/19 Unknown Rx Flextouch (Nf)] Lispro Insulin [HumaLOG] 2 unit SQ TIDAC #1 vial 03/20/19 03/18/19 Unknown Rx Losartan [Cozaar] 100 mg PO QDAY #30 tablet 03/20/19 Unknown Rx NIFEdipine [Adalat cc] 60 mg PO QDAY #30 tablet.er 03/20/19 Unknown Rx Sevelamer Carbonate [Renvela] 800 mg PO TIDWM #90 tablet 03/20/19 Unknown Rx Torsemide [Demadex] 100 mg PO QDAY #30 tablet 03/20/19 Unknown Rx calcitrioL [Rocaltrol] 0.25 mcg PO QDAY #30 capsule 03/20/19 Unknown Rx carvediloL [Coreg] 25 mg PO BID #60 tab 03/20/19 03/18/19 Unknown Rx hydrALAZINE [Apresoline TAB] 2 tab PO TID #90 tablet 03/20/19 Unknown Rx ED Physical Exam - General Limitations: No Limitations ED Course Vital Signs 12/13/19 16:10 Temperature 98.2 F Pulse Rate 98 H Respiratory 16 Rate O2 Sat by Pulse 100 Oximetry - Reevaluation(s) Reevaluation #1: Discussed with Dr. Rogers. He is dialyzed this patient before. We discussed his laboratory findings. Dr. Rogers agrees with 60 g of Kayexalate now and dialysis as an outpatient tomorrow. I also discussed with the infectious disease specialist. He states that this is essentially analogous to a positive PPD. Patient is a candidate for prophylactic treatment. This may be determined as an outpatient with an infectious disease specialist. There is no indication for quarantine or emergency treatment at this time. I spoke with Dr. Zuluaga's, the patient's dialysis doctors office. Staff said the patient was to be referred to infectious disease anyway. They were unaware that the patient was sent to the emergency department. He will be discharged. 12/13/19 17:00 ED Medical Decision Making - Lab Data Result diagrams: 12/13/19 15:56 12/13/19 15:56 Laboratory Results - last 24 hr 12/13/19 12/13/19 12/13/19 15:56 15:56 15:56 WBC 5.7 RBC 3.25 L Hgb 9.6 L Hct 28.0 L MCV 86 MCH 29 MCHC 34 RDW 17.4 H Plt Count 240 Lymph % (Auto) 25.6 [place] % (Auto) 12.0 H Eos % (Auto) 5.3 H Baso % (Auto) 1.2 Lymph # 1.5 [place] # 0.7 Eos # 0.3 Baso # 0.1 Seg Neutrophils % 55.9 Seg Neutrophils # 3.2 PT 13.7 INR 1.04 APTT 30.3 Sodium 138 Potassium 5.7 H Chloride 97.5 L Carbon Dioxide 23 Anion Gap 23 BUN 34 H Creatinine 6.1 H Estimated GFR 11 BUN/Creatinine Ratio 6 Glucose 245 H Calcium 9.1 Phosphorus 3.50 Magnesium 2.30 Total Bilirubin 0.60 Direct Bilirubin < 0.2 Indirect Bilirubin 0.4 AST 34 ALT 41 Alkaline Phosphatase 207 H NT-Pro-B Natriuret Pep 91032 H Total Protein 8.4 H Albumin 3.7 L Albumin/Globulin Ratio 0.8 Critical care attestation.: If time is entered above; I have spent that time in minutes in the direct care of this critically ill patient, excluding procedure time. ED Disposition Clinical Impression: Hyperkalemia, End stage renal disease, Positive QuantiFERON-TB Gold test Disposition: - TO HOME OR SELFCARE Is pt being admited?: No Does the pt Need Aspirin: No Condition: Stable Instructions: Chronic Kidney Disease (ED) Additional Instructions: You must report for dialysis tomorrow. It is essential. You may have some diarrhea tonight second to the medicine given to reduce your potassium. Return to the emergency department any acute change or problem. Referrals: PRIMARY CARE, [Primary Care Provider] - 3-5 Days Usual, dialysis center [Other] - 24 Hours Time of Disposition: 17:03
[2019-12-13 16:44] LABS: Bilirubin,Direct < 0.2 mg/dL (0-0.2)
[2019-12-13] MEDS ORDERED: SODIUM POLYSTYRENE 15 GM/60 ML ORAL LIQD PO ONE (17:04)
[2019-12-13 17:48] VITALS: BP 153/72
== END 2019-12-13 17:45 | disposition home or self-care (01) ==
LOC: ED 14:26
DX: R76.12 Nonspecific reaction to cell mediated immunity measurement of gamma interferon antigen response without active tuberculosis (principal); E87.5 Hyperkalemia; E11.22 Type 2 diabetes mellitus with diabetic chronic kidney disease; I12.0 Hypertensive chronic kidney disease with stage 5 chronic kidney disease or end stage renal disease; N18.6 End stage renal disease; Z99.2 Dependence on renal dialysis; Z79.2 Long term (current) use of antibiotics; Z79.899 Other long term (current) drug therapy
CPT/HCPCS: 36415; 71045; 80048; 80076; 83735; 83880; 84100; 85025; 85610; 85730